=== PATIENT | female | born 1980 | race African-American/Black ===

== ENCOUNTER 2018-03-11 14:52 | Emergency (ER) | payer MEDICARE, MEDICAID ==
[~2018-03-11] VITALS: Ht 190.5 cm; Wt 168.2 kg
[~2018-03-11 14:52] MED LIST: AMOXICILLIN 8751 TAB PO; DIFLUCAN200 MG PO; HCTZ 25MG TAB25 MG PO; K-DUR 2020 MEQ PO; PREDNISONE20 MG PO; RT ADVAIR HFA 2312 G IH; SINGULAIR 110 MG/TAB PO; THEO-DUR 3300 MG/TAB PO; TOPAMAX50 MG PO; VENTOLIN0.09 MG IH; ZESTRIL 10MG10 MG PO; ZOLOFT 50MG50 MG PO
[2018-03-11] MEDS ORDERED: ZITHROMAX 250M250 MG PO (16:19)
[2018-03-11] MEDS ORDERED: BACTRIM DS 8001 TAB PO (16:20)
[2018-03-11 17:03] LABS: BASO % 0.2 % (0.0-2.0); EOS # 0.1 (0.0-0.7); EOS % 1.8 % (0-4.0); GRAN # 2.1 (1.4-6.5); GRAN % 48.6 % (42.2-75.2); LYMPH # 1.8 (1.2-3.4); LYMPH % 40.1 % (20.0-51.0); MEAN CELL VOLUME 83 fl (80.0-100.0); MEAN CORPUSCULAR HGB CONC 30 g/dl (33.0-37.0); MEAN PLATELET VOLUME 9.4 fl (7.4-10.4); MONO # 0.4 (0.1-0.6); MONO % 8.8 % (1.7-9.3); PLATELET COUNT 199 K/mm3 (130-400); REDCELL DISTRIBUTION WIDTH-CV 16.3 % (11.5-14.5)
[2018-03-11 17:05] LABS: HEMATOCRIT 30.6 % (37.0-47.0); HEMOGLOBIN 9.2 g/dl (12.5-16.0); MEAN CORPUSCULAR HEMOGLOBIN 25 pg (27.0-31.0)
[2018-03-11 17:11] VITALS: TEMP 97.3
[2018-03-11 17:19] LABS: ALANINE AMINOTRANSFERASE 23 U/L (9-52); ALBUMIN 3.4 gm/dL (3.5-5.0); ALKALINE PHOSPHATASE 57 U/L (50-136); ANION GAP 3 mmol/L (7-16); AST,SGOT 15 U/L (15-37); BILIRUBIN,TOTAL 0.2 mg/dL (0.0-1.0); BLOOD UREA NITROGEN 10 mg/dL (7-17); CALCIUM 8.7 mg/dL (8.4-10.2); CARBON DIOXIDE 28 mmol/L (22-30); CHLORIDE 111 mmol/L (98-107); CREATININE, serum 0.87 mg/dL (0.52-1.25); GLUCOSE 95 mg/dL (74-106); POTASSIUM 3.7 mmol/L (3.4-5.0); SODIUM 142 mmol/L (137-145); TOTAL PROTEIN 6.5 gm/dL (6.4-8.2)
[2018-03-11 17:23] LABS: C-REACTIVE PROTEIN < 0.5 mg/dL (0.0-0.9)
[2018-03-11 17:27] LABS: ARTERIAL BLD GAS O2 SATURATION 96.3 % (92-100); ARTERIAL BLD GAS TCO2 CT 25.8; ARTERIAL BLOOD GAS BASE EXCESS 0.5 (-2-2); ARTERIAL BLOOD GAS HCO3 24.7 meq/L (22-26); ARTERIAL BLOOD GAS PCO2 37.7 mmHg (35-45); ARTERIAL BLOOD GAS PO2 93.4 mmHg (80-100); ARTERIAL BLOOD GAS pH 7.43 (7.35-7.45)
[2018-03-11 17:28] LABS: TROPONIN-I < 0.012 ng/mL (0.000-0.034)
[2018-03-11] MEDS ORDERED: PREDNISONE20 MG PO (17:39)
[2018-03-11 18:39] VITALS: BP 130/80; PULSE 65
== END 2018-03-11 18:39 | disposition home or self-care (01) ==
LOC: COL.ER 14:52
PROVIDERS: Emergency Medicine
DX: J45.901 Unspecified asthma with (acute) exacerbation (principal); J06.9 Acute upper respiratory infection, unspecified; I10 Essential (primary) hypertension; F32.9 Major depressive disorder, single episode, unspecified; Z21 Asymptomatic human immunodeficiency virus [HIV] infection status
CPT/HCPCS: J2930

== ENCOUNTER 2018-08-09 22:28 | Emergency (ER) | payer MEDICARE, MEDICAID ==
[~2018-08-09] VITALS: Ht 193 cm; Wt 181.8 kg
[~2018-08-09 22:28] MED LIST changes: +BACTRIM DS 8001 TAB PO; +ZITHROMAX 250M250 MG PO
[2018-08-09 22:38] VITALS: BP 149/73; TEMP 98
[2018-08-09 23:19] LABS: BASO % 0.3 % (0.0-2.0); EOS # 0.1 (0.0-0.7); EOS % 1.8 % (0-4.0); GRAN # 4.7 (1.4-6.5); GRAN % 69.8 % (42.2-75.2); HEMOGLOBIN 10.5 g/dl (12.5-16.0); LYMPH # 1.4 (1.2-3.4); LYMPH % 20.5 % (20.0-51.0); MEAN CELL VOLUME 79 fl (80.0-100.0); MEAN CORPUSCULAR HEMOGLOBIN 23 pg (27.0-31.0); MEAN CORPUSCULAR HGB CONC 29 g/dl (33.0-37.0); MEAN PLATELET VOLUME 9.7 fl (7.4-10.4); MONO # 0.5 (0.1-0.6); MONO % 7.5 % (1.7-9.3); PLATELET COUNT 199 K/mm3 (130-400); RED BLOOD COUNT 4.57 M/mm3 (4.10-5.30); REDCELL DISTRIBUTION WIDTH-CV 16.5 % (11.5-14.5)
[2018-08-09 23:33] LABS: ALANINE AMINOTRANSFERASE 10 U/L (9-52); ALBUMIN 4.3 gm/dL (3.5-5.0); ALKALINE PHOSPHATASE 78 U/L (50-136); ANION GAP 7 mmol/L (7-16); AST,SGOT 22 U/L (15-37); BILIRUBIN,TOTAL 0.4 mg/dL (0.0-1.0); BLOOD UREA NITROGEN 12 mg/dL (7-17); CALCIUM 9.2 mg/dL (8.4-10.2); CARBON DIOXIDE 23 mmol/L (22-30); CHLORIDE 107 mmol/L (98-107); CREATININE, serum 1.06 mg/dL (0.52-1.25); GLUCOSE 121 mg/dL (74-106); LIPASE 30 U/L (23-300); POTASSIUM 4.1 mmol/L (3.4-5.0); SODIUM 136 mmol/L (137-145); TOTAL PROTEIN 7.8 gm/dL (6.4-8.2)
[2018-08-09 23:34] LABS: C-REACTIVE PROTEIN < 0.5 mg/dL (0.0-0.9)
[2018-08-09 23:42] LABS: TROPONIN-I < 0.012 ng/mL (0.000-0.035)
[2018-08-10 01:18] LABS: COLLECTION METHOD CLEAN CATCH
[2018-08-10 01:39] LABS: MUCOUS Present /lpf; PH 5 (5-8); SQUAMOUS EPITHELIAL 0-2 /hpf; URINE APPEARANCE Clear; URINE BACTERIA None Seen /hpf; URINE BILIRUBIN Negative (NEGATIVE); URINE BLOOD Negative (NEGATIVE); URINE COLOR Yellow; URINE GLUCOSE Negative (NEGATIVE); URINE KETONE Negative (NEGATIVE); URINE LEUKOCYTE ESTERASE Negative (NEGATIVE); URINE NITRATE Negative (NEGATIVE); URINE PROTEIN(semi-quant) Negative (NEGATIVE); URINE RBC 0-2 /hpf; URINE UROBILINOGEN Negative (NEGATIVE)
[2018-08-10 03:05] VITALS: PULSE 68
== END 2018-08-10 03:06 | disposition home or self-care (01) ==
LOC: COL.ER 22:28
PROVIDERS: Emergency Medicine
DX: K52.9 Noninfective gastroenteritis and colitis, unspecified (principal); E11.9 Type 2 diabetes mellitus without complications; I10 Essential (primary) hypertension; J45.909 Unspecified asthma, uncomplicated; F32.9 Major depressive disorder, single episode, unspecified; Z98.84 Bariatric surgery status; Z90.49 Acquired absence of other specified parts of digestive tract; Z79.51 Long term (current) use of inhaled steroids
CPT/HCPCS: J1170; J2405; J2550; J2765; J7030

== ENCOUNTER 2018-10-01 21:15 | Emergency (ER) | payer MEDICARE, MEDICAID ==
[~2018-10-01] VITALS: Ht 190.5 cm; Wt 181.8 kg
[2018-10-01 21:40] LABS: ALBUMIN 3.9 gm/dL (3.5-5.0); BILIRUBIN,TOTAL 0.3 mg/dL (0.0-1.0); CREATININE, serum 0.98 (0.52-1.25); POTASSIUM 3.4 mmol/L (3.4-5.0); TOTAL PROTEIN 7.4 gm/dL (6.4-8.2)
[2018-10-01 21:57] LABS: ARTERIAL BLD GAS O2 SATURATION 96.4 % (92-100); ARTERIAL BLD GAS TCO2 CT 24.3; ARTERIAL BLOOD GAS BASE EXCESS -0.8 (-2-2); ARTERIAL BLOOD GAS HCO3 23.2 meq/L (22-26); ARTERIAL BLOOD GAS PCO2 35.5 mmHg (35-45); ARTERIAL BLOOD GAS PO2 98.4 mmHg (80-100); ARTERIAL BLOOD GAS pH 7.43 (7.35-7.45)
[2018-10-01 22:07] LABS: BASO % 0.2 % (0.0-2.0); EOS % 0.2 % (0-4.0); GRAN # 2.2 (1.4-6.5); GRAN % 54.7 % (42.2-75.2); HEMATOCRIT 30.5 % (37.0-47.0); HEMOGLOBIN 9.1 g/dl (12.5-16.0); LYMPH # 1.3 (1.2-3.4); LYMPH % 32.4 % (20.0-51.0); MEAN CELL VOLUME 77 fl (80.0-100.0); MEAN CORPUSCULAR HEMOGLOBIN 23 pg (27.0-31.0); MEAN CORPUSCULAR HGB CONC 30 g/dl (33.0-37.0); MEAN PLATELET VOLUME 10.3 fl (7.4-10.4); MONO # 0.5 (0.1-0.6); PLATELET COUNT 212 K/mm3 (130-400); RED BLOOD COUNT 3.94 M/mm3 (4.10-5.30); REDCELL DISTRIBUTION WIDTH-CV 17.6 % (11.5-14.5)
[2018-10-01 23:39] LABS: COLLECTION METHOD CLEAN CATCH
[2018-10-01 23:48] LABS: PH 7 (5-8); SQUAMOUS EPITHELIAL 0-2 /hpf; URINE APPEARANCE Clear; URINE BACTERIA None Seen /hpf; URINE BILIRUBIN Negative (NEGATIVE); URINE BLOOD Negative (NEGATIVE); URINE COLOR Straw; URINE GLUCOSE Negative (NEGATIVE); URINE KETONE Negative (NEGATIVE); URINE LEUKOCYTE ESTERASE Negative (NEGATIVE); URINE NITRATE Negative (NEGATIVE); URINE PROTEIN(semi-quant) Negative (NEGATIVE); URINE RBC 0-2 /hpf; URINE UROBILINOGEN Negative (NEGATIVE)
[2018-10-01 23:59] LABS: TRICYCLIC ANTIDEPRESS URINE NEGATIVE
[2018-10-02] MEDS ORDERED: TRIUMEQ1 TAB PO (00:07)
[2018-10-02] MEDS ORDERED: DIFLUCAN150 MG PO (00:07)
[2018-10-02] MEDS ORDERED: FLONASE NASAL S16 GM NS (00:08)
[2018-10-02 03:58] VITALS: BP 155/86; PULSE 72; TEMP 98
== END 2018-10-02 03:40 | disposition short-term general hospital (02) ==
LOC: COL.ER 21:15
PROVIDERS: Family Medicine
DX: R41.82 Altered mental status, unspecified (principal); R51 Headache; R50.9 Fever, unspecified; R05 Cough; I10 Essential (primary) hypertension; Z21 Asymptomatic human immunodeficiency virus [HIV] infection status
CPT/HCPCS: J0133; J0290; J0696; J1100; J2270; J2310; J3370; J7030; J7040; J7050

== ENCOUNTER → 2018-10-25 | Outpatient (CLI) | payer MEDICARE, MEDICAID ==
[~2018-10-25] MED LIST changes: +DIFLUCAN150 MG PO; +FLONASE NASAL S16 GM NS; +TRIUMEQ1 TAB PO
== END ==
LOC: COL.PUL 07:25
DX: Z02.71 Encounter for disability determination (principal)

== ENCOUNTER 2019-05-15 02:09 | Emergency (ER) | payer MEDICARE, MEDICAID ==
[~2019-05-15] VITALS: Ht 190.5 cm; Wt 204.5 kg
[2019-05-15 02:45] VITALS: BP 132/70; PULSE 62; TEMP 98
[2019-05-15] MEDS ORDERED: AMOXICILLIN/CLA1 TA1 PO (02:45)
== END 2019-05-15 02:56 | disposition home or self-care (01) ==
LOC: COL.ER 02:09
DX: J06.9 Acute upper respiratory infection, unspecified (principal); J40 Bronchitis, not specified as acute or chronic; I10 Essential (primary) hypertension; Z79.51 Long term (current) use of inhaled steroids

== ENCOUNTER 2019-07-30 16:27 | Emergency (ER) | payer MEDICARE, MEDICAID ==
[~2019-07-30] VITALS: Ht 190.5 cm; Wt 195.5 kg
[~2019-07-30 16:27] MED LIST changes: +AMOXICILLIN/CLA1 TA1 PO
[2019-07-30 16:46] VITALS: TEMP 98
[2019-07-30] MEDS ORDERED: GLUCOPHAGE XR500 M1 PO (17:19)
[2019-07-30] MEDS ORDERED: PREDNISONE20 MG PO (19:10)
[2019-07-30 19:51] VITALS: BP 122/70; PULSE 76
== END 2019-07-30 19:55 | disposition home or self-care (01) ==
LOC: COL.ER 16:27
DX: J45.901 Unspecified asthma with (acute) exacerbation (principal); E11.9 Type 2 diabetes mellitus without complications; Z98.51 Tubal ligation status; Z90.89 Acquired absence of other organs; Z98.84 Bariatric surgery status; Z88.1 Allergy status to other antibiotic agents; Z79.84 Long term (current) use of oral hypoglycemic drugs; Z21 Asymptomatic human immunodeficiency virus [HIV] infection status
CPT/HCPCS: J1100

== ENCOUNTER 2019-11-01 15:51 | Outpatient (CLI) | payer MEDICARE, MEDICAID ==
[~2019-11-01] VITALS: Ht 190.5 cm; Wt 201.2 kg
[~2019-11-01 15:51] MED LIST changes: +GLUCOPHAGE XR500 M1 PO; +TOPAMAX 100MG100 M1 PO; -TOPAMAX50 MG PO; +ZOLOFT 100MG100 MG PO; -ZOLOFT 50MG50 MG PO
[2019-11-01] MEDS ORDERED: TRIUMEQ1 TAB PO (16:10)
[2019-11-01] MEDS ORDERED: BACTRIM DS 8001 TAB PO (16:14)
[2019-11-01] MEDS ORDERED: PRINIVIL5 MG PO (16:15)
[2019-11-01] MEDS ORDERED: GLUCOPHAGE XR500 M1 PO (16:16)
[2019-11-01] MEDS ORDERED: DIFLUCAN150 MG PO (16:16)
[2019-11-01] MEDS ORDERED: PRILOSEC 20MG20 MG PO (16:17)
[2019-11-01] MEDS ORDERED: EFFEXOR 3737.5 MG/TA PO (16:18)
[2019-11-01] MEDS ORDERED: DESYREL 50MG50 MG PO (16:19)
[2019-11-01] MEDS ORDERED: CLINORIL 2200 MG/TAB PO (16:19)
[2019-11-01] MEDS ORDERED: FLONASE NASAL S16 GM NS (16:20)
[2019-11-01 16:21] VITALS: BP 130/78; TEMP 98.3
[2019-11-01 19:10] VITALS: BP 136/77; PULSE 74; TEMP 98.1
== END 2019-11-01 19:19 | disposition home or self-care (01) ==
LOC: EUO 15:51
DX: D50.9 Iron deficiency anemia, unspecified (principal)
CPT/HCPCS: J2916; J7050

== ENCOUNTER 2020-01-05 15:49 | Emergency (ER) | payer MEDICARE, MEDICAID ==
[~2020-01-05] VITALS: Ht 190.5 cm; Wt 190.9 kg
[~2020-01-05 15:49] MED LIST changes: +CLINORIL 2200 MG/TAB PO; +DESYREL 50MG50 MG PO; +EFFEXOR 3737.5 MG/TA PO; +PRILOSEC 20MG20 MG PO; +PRINIVIL5 MG PO
[2020-01-05 16:13] VITALS: TEMP 97.6
[2020-01-05 16:44] LABS: BASO % 0.8 % (0.0-2.0); EOS # 0.1 (0.0-0.7); EOS % 2.2 % (0-4.0); GRAN # 1.5 (1.4-6.5); GRAN % 39.7 % (42.2-75.2); HEMATOCRIT 39.2 % (37.0-47.0); HEMOGLOBIN 11.7 g/dl (12.5-16.0); LYMPH # 1.9 (1.2-3.4); MEAN CELL VOLUME 80 fl (80.0-100.0); MEAN CORPUSCULAR HEMOGLOBIN 24 pg (27.0-31.0); MEAN CORPUSCULAR HGB CONC 30 g/dl (33.0-37.0); MONO # 0.3 (0.1-0.6); PLATELET COUNT 242 K/mm3 (130-400); RED BLOOD COUNT 4.88 M/mm3 (4.10-5.30); REDCELL DISTRIBUTION WIDTH-CV 20.3 % (11.5-14.5)
[2020-01-05 16:56] LABS: ALANINE AMINOTRANSFERASE 11 U/L (4-34); ALBUMIN 4.5 gm/dL (3.5-5.0); ALKALINE PHOSPHATASE 56 U/L (50-136); ANION GAP 9 mmol/L (7-16); AST,SGOT 25 U/L (15-37); BILIRUBIN,TOTAL 0.6 mg/dL (0.0-1.0); BLOOD UREA NITROGEN 11 mg/dL (7-17); CALCIUM 9.3 mg/dL (8.4-10.2); CARBON DIOXIDE 21 mmol/L (22-30); CHLORIDE 107 mmol/L (98-107); CREATININE, serum 0.98 (0.52-1.25); GLUCOSE 109 mg/dL (74-106); SODIUM 137 mmol/L (137-145); TOTAL PROTEIN 8.8 gm/dL (6.4-8.2)
[2020-01-05 17:01] LABS: C-REACTIVE PROTEIN < 0.5 mg/dL (0.0-0.9)
[2020-01-05 17:14] LABS: TROPONIN-I < 0.012 ng/mL (0.000-0.035)
[2020-01-05 17:38] LABS: STREP SCREEN NEGATIVE
[2020-01-05] MEDS ORDERED: PREDNISONE20 MG PO (17:46)
[2020-01-05 18:06] VITALS: BP 101/55; PULSE 73
== END 2020-01-05 18:06 | disposition home or self-care (01) ==
LOC: COL.ER 15:49
PROVIDERS: Emergency Medicine
DX: R05 Cough (principal); R07.89 Other chest pain; R42 Dizziness and giddiness; F32.9 Major depressive disorder, single episode, unspecified; K21.9 Gastro-esophageal reflux disease without esophagitis; J45.909 Unspecified asthma, uncomplicated; I10 Essential (primary) hypertension; Z90.49 Acquired absence of other specified parts of digestive tract; Z20.828 Contact with and (suspected) exposure to other viral communicable diseases; Z21 Asymptomatic human immunodeficiency virus [HIV] infection status; Z79.51 Long term (current) use of inhaled steroids; Z79.84 Long term (current) use of oral hypoglycemic drugs
CPT/HCPCS: J7030

== ENCOUNTER 2020-01-09 16:00 | Outpatient (RCR) | payer MEDICARE, MEDICAID ==
[2019-12-15 14:35] VITALS: BP 155/80; PULSE 61; TEMP 97.1
[2019-12-23 07:46] VITALS: BP 138/87; PULSE 70; TEMP 98.5
[~2020-01-09] VITALS: Ht 190.5 cm; Wt 192.3 kg
[2020-01-09 16:21] VITALS: BP 117/72; PULSE 86; TEMP 98.9
== END 2020-01-09 18:22 | disposition home or self-care (01) ==
LOC: EUO 16:00
DX: D50.9 Iron deficiency anemia, unspecified (principal); Z79.899 Other long term (current) drug therapy
CPT/HCPCS: J2916; J7050

== ENCOUNTER 2020-01-26 22:25 | Emergency (ER) | payer MEDICARE, MEDICAID ==
[~2020-01-26] VITALS: Ht 190.5 cm; Wt 190.9 kg
[2020-01-26 22:27] VITALS: TEMP 98.9
[2020-01-26 22:53] LABS: BASO % 0.4 % (0.0-2.0); EOS # 0.1 (0.0-0.7); EOS % 1.8 % (0-4.0); GRAN # 1.4 (1.4-6.5); GRAN % 50.7 % (42.2-75.2); HEMATOCRIT 38.5 % (37.0-47.0); HEMOGLOBIN 11.7 g/dl (12.5-16.0); LYMPH % 37.1 % (20.0-51.0); MEAN CELL VOLUME 81 fl (80.0-100.0); MEAN CORPUSCULAR HEMOGLOBIN 25 pg (27.0-31.0); MEAN CORPUSCULAR HGB CONC 30 g/dl (33.0-37.0); MEAN PLATELET VOLUME 9.5 fl (7.4-10.4); MONO # 0.3 (0.1-0.6); MONO % 9.6 % (1.7-9.3); PLATELET COUNT 175 K/mm3 (130-400); RED BLOOD COUNT 4.73 M/mm3 (4.10-5.30); REDCELL DISTRIBUTION WIDTH-CV 19.2 % (11.5-14.5)
[2020-01-26 23:06] LABS: ALANINE AMINOTRANSFERASE 12 U/L (4-34); ALBUMIN 4.1 gm/dL (3.5-5.0); ALKALINE PHOSPHATASE 62 U/L (50-136); ANION GAP 9 mmol/L (7-16); AST,SGOT 20 U/L (15-37); BILIRUBIN,TOTAL 0.2 mg/dL (0.0-1.0); BLOOD UREA NITROGEN 9 mg/dL (7-17); CALCIUM 9.2 mg/dL (8.4-10.2); CARBON DIOXIDE 22 mmol/L (22-30); CHLORIDE 108 mmol/L (98-107); CREATININE, serum 0.74 (0.52-1.25); GLUCOSE 116 mg/dL (74-106); POTASSIUM 3.4 mmol/L (3.4-5.0); SODIUM 139 mmol/L (137-145); TOTAL PROTEIN 7.8 gm/dL (6.4-8.2)
[2020-01-26 23:10] LABS: C-REACTIVE PROTEIN < 0.5 mg/dL (0.0-0.9)
[2020-01-27 01:10] VITALS: BP 150/86; PULSE 81
== END 2020-01-27 01:10 | disposition home or self-care (01) ==
LOC: COL.ER 22:25
PROVIDERS: Emergency Medicine
DX: R51 Headache (principal); I10 Essential (primary) hypertension; F32.9 Major depressive disorder, single episode, unspecified; Z86.69 Personal history of other diseases of the nervous system and sense organs; Z79.52 Long term (current) use of systemic steroids; Z79.51 Long term (current) use of inhaled steroids; Z79.84 Long term (current) use of oral hypoglycemic drugs
CPT/HCPCS: J1170; J1790; J2405; J7030

== ENCOUNTER 2020-04-18 18:05 | Emergency (ER) | payer MEDICARE, MEDICAID ==
[~2020-04-18] VITALS: Ht 190.5 cm; Wt 186.4 kg
[2020-04-18 18:12] VITALS: TEMP 97.5
[2020-04-18 18:34] VITALS: BP 129/78; PULSE 82
== END 2020-04-18 18:34 | disposition home or self-care (01) ==
LOC: COL.ER 18:05
DX: Z20.828 Contact with and (suspected) exposure to other viral communicable diseases (principal); J45.909 Unspecified asthma, uncomplicated; Z88.1 Allergy status to other antibiotic agents; Z79.52 Long term (current) use of systemic steroids; Z79.84 Long term (current) use of oral hypoglycemic drugs

== ENCOUNTER 2020-09-18 22:28 | Emergency (ER) | payer MEDICARE, MEDICAID ==
[~2020-09-18] VITALS: Ht 190.5 cm; Wt 190.9 kg
[2020-09-18 22:43] VITALS: TEMP 99.5
[2020-09-18 23:19] LABS: BASO % 0.3 % (0.0-2.0); EOS % 0.7 % (0-4.0); GRAN # 3.6 (1.4-6.5); GRAN % 60.9 % (42.2-75.2); HEMOGLOBIN 10.9 g/dl (12.5-16.0); LYMPH # 1.8 (1.2-3.4); LYMPH % 30.3 % (20.0-51.0); MEAN CELL VOLUME 84 fl (80.0-100.0); MEAN CORPUSCULAR HEMOGLOBIN 26 pg (27.0-31.0); MEAN CORPUSCULAR HGB CONC 31 g/dl (33.0-37.0); MEAN PLATELET VOLUME 10.7 fl (7.4-10.4); MONO # 0.5 (0.1-0.6); MONO % 7.6 % (1.7-9.3); PLATELET COUNT 172 K/mm3 (130-400); RED BLOOD COUNT 4.19 M/mm3 (4.10-5.30); REDCELL DISTRIBUTION WIDTH-CV 14.1 % (11.5-14.5)
[2020-09-18 23:22] LABS: ALANINE AMINOTRANSFERASE 11 U/L (4-34); ALBUMIN 3.8 gm/dL (3.5-5.0); ALKALINE PHOSPHATASE 70 U/L (50-136); ANION GAP 5 mmol/L (7-16); AST,SGOT 23 U/L (15-37); BILIRUBIN,TOTAL 0.2 mg/dL (0.0-1.0); BLOOD UREA NITROGEN 10 mg/dL (7-17); CALCIUM 8.9 mg/dL (8.4-10.2); CARBON DIOXIDE 22 mmol/L (22-30); CHLORIDE 107 mmol/L (98-107); CREATININE, serum 0.73 (0.52-1.25); GLUCOSE 106 mg/dL (74-106); SODIUM 134 mmol/L (137-145); TOTAL PROTEIN 8.3 gm/dL (6.4-8.2)
[2020-09-18 23:24] LABS: HEMATOCRIT 35.3 % (37.0-47.0)
[2020-09-18 23:25] LABS: MONOSCREEN NEGATIVE
[2020-09-18 23:26] LABS: STREP SCREEN NEGATIVE
[2020-09-18 23:41] LABS: TROPONIN-I < 0.012 ng/mL (0.000-0.035)
[2020-09-19 01:15] VITALS: BP 139/77; PULSE 88
== END 2020-09-19 01:18 | disposition home or self-care (01) ==
LOC: COL.ER 22:28
PROVIDERS: Nurse Practitioner
DX: B34.9 Viral infection, unspecified (principal); Z20.822 Contact with and (suspected) exposure to COVID-19; Z88.1 Allergy status to other antibiotic agents; Z91.040 Latex allergy status; Z79.52 Long term (current) use of systemic steroids; Z79.84 Long term (current) use of oral hypoglycemic drugs
CPT/HCPCS: J3010; J7030

== ENCOUNTER 2021-05-03 11:03 | Outpatient (RCR) | payer MEDICARE, MEDICAID ==
[~2021-05-03] VITALS: Ht 190.5 cm; Wt 184.3 kg
[~2021-05-03 11:03] MED LIST changes: +PRINIVIL10 MG PO; -PRINIVIL5 MG PO
[2021-05-03 11:56] VITALS: BP 122/65; PULSE 71; TEMP 98.5
[2021-05-03] MEDS ORDERED: BIKTARVY 50-201 EACH PO (12:16)
[2021-05-03] MEDS ORDERED: VENTOLIN0.09 MG IH (12:17)
== END 2021-05-03 12:30 | disposition home or self-care (01) ==
LOC: EUO 11:03
DX: D50.9 Iron deficiency anemia, unspecified (principal)
CPT/HCPCS: J1756

== ENCOUNTER 2021-09-11 23:21 | Emergency (ER) | payer MEDICARE, MEDICAID ==
[~2021-09-11] VITALS: Ht 190.5 cm; Wt 181.8 kg
[~2021-09-11 23:21] MED LIST changes: +BIKTARVY 50-201 EACH PO
[2021-09-12] VITALS: BP 133/91; PULSE 75; TEMP 97.8
== END 2021-09-12 01:01 | disposition home or self-care (01) ==
LOC: COL.ER 23:21
DX: S62.613A Displaced fracture of proximal phalanx of left middle finger, initial encounter for closed fracture (principal); S60.312A Abrasion of left thumb, initial encounter; Z91.040 Latex allergy status; W01.0XXA Fall on same level from slipping, tripping and stumbling without subsequent striking against object, initial encounter

== ENCOUNTER 2021-10-15 16:56 | Emergency (ER) | payer MEDICARE, MEDICAID ==
[~2021-10-15] VITALS: Ht 190.5 cm; Wt 190.9 kg
[2021-10-15 17:02] VITALS: TEMP 97.6
[2021-10-15 17:19] LABS: BASO % 0.9 % (0.0-2.0); EOS # 0.2 K/mm3 (0.0-0.7); EOS % 3.5 % (0.0-4.0); GRAN # 1.7 K/mm3 (1.4-6.5); GRAN % 39.2 % (42.2-75.2); HEMATOCRIT 38.9 % (37.0-47.0); LYMPH # 2.1 K/mm3 (1.2-3.4); LYMPH % 47.2 % (20.0-51.0); MEAN CELL VOLUME 84 fl (80.0-100.0); MEAN CORPUSCULAR HEMOGLOBIN 26 pg (27-31); MEAN CORPUSCULAR HGB CONC 31 g/dl (33.0-37.0); MEAN PLATELET VOLUME 9.7 fl (7.4-10.4); MONO # 0.4 K/mm3 (0.1-0.6); PLATELET COUNT 234 K/mm3 (130-400); RED BLOOD COUNT 4.64 M/mm3 (4.10-5.30); REDCELL DISTRIBUTION WIDTH-CV 14.3 % (11.5-14.5)
[2021-10-15 17:24] LABS: INR 1.1 (0.8-3.0); PROTHROMBIN TIME 12.6 SECONDS (9.7-12.8)
[2021-10-15 17:33] LABS: ALANINE AMINOTRANSFERASE 12 U/L (0-55); ALBUMIN 3.6 gm/dL (3.5-5.0); ALKALINE PHOSPHATASE 62 U/L (40-150); ANION GAP 12 mmol/L (7-16); AST,SGOT 14 U/L (5-34); BILIRUBIN,TOTAL 0.3 mg/dL (0.2-1.2); BLOOD UREA NITROGEN 15 mg/dL (7-19); CALCIUM 8.6 mg/dL (8.4-10.2); CARBON DIOXIDE 19 mmol/L (22-29); CHLORIDE 109 mmol/L (98-107); CREATININE, serum 1.01 mg/dL (0.57-1.11); GLUCOSE 92 mg/dL (70-99); LIPASE 24 U/L (8-78); POTASSIUM 3.9 mmol/L (3.5-4.5); SODIUM 140 mmol/L (136-145)
[2021-10-15 17:38] LABS: D-DIMER < 200.00 ng/mLDDu (200-230)
[2021-10-15 17:39] LABS: TROPONIN-I < 0.010 ng/mL (0.00-0.033)
[2021-10-15] MEDS ORDERED: NAPROSYN500 MG PO (17:56)
[2021-10-15 18:39] VITALS: BP 138/95; PULSE 59
== END 2021-10-15 18:42 | disposition home or self-care (01) ==
LOC: COL.ER 16:56
PROVIDERS: Nurse Practitioner Primary Care
DX: M94.0 Chondrocostal junction syndrome [Tietze] (principal); Z91.040 Latex allergy status
CPT/HCPCS: J1200; J1885; J7030

== ENCOUNTER 2022-02-10 09:00 | Outpatient (RCR) | payer MEDICARE, MEDICAID ==
[2022-01-30 11:34] VITALS: BP 124/81; BP 141/91; PULSE 63; PULSE 93; TEMP 98; TEMP 98.5
[2022-02-03 11:30] VITALS: BP 131/78; PULSE 89; TEMP 98
[2022-02-05 09:21] VITALS: BP 146/74; BP 94/59; PULSE 74; PULSE 84; TEMP 97.9; TEMP 98.4
[2022-02-07 09:18] VITALS: BP 143/75; PULSE 79; TEMP 98.4
[~2022-02-10] VITALS: Ht 190.5 cm; Wt 191.6 kg
[~2022-02-10 09:00] MED LIST changes: +NAPROSYN500 MG PO
[2022-02-10 09:28] VITALS: BP 138/74; PULSE 81; TEMP 98.2
--- NOTE | 2022-02-10 10:16 | NUR ---
Pt tolerated infusion without issue. IV site wrapped with coban. Pt exits dept with steady gait.
== END 2022-02-10 10:18 | disposition home or self-care (01) ==
LOC: EUO 09:00
DX: D50.9 Iron deficiency anemia, unspecified (principal)
CPT/HCPCS: J1756

== ENCOUNTER 2022-09-19 12:12 | Emergency (ER) | payer MEDICARE, MEDICAID ==
[~2022-09-19] VITALS: Ht 190.5 cm; Wt 190.9 kg
[~2022-09-19 12:12] MED LIST changes: +ZITHROMAX Z PA250 MG PO
[2022-09-19 12:20] VITALS: BP 169/90; TEMP 99
[2022-09-19 12:53] LABS: BASO % 0.5 % (0.0-2.0); EOS % 0.5 % (0.0-4.0); GRAN # 2.5 K/mm3 (1.4-6.5); GRAN % 65.8 % (42.2-75.2); HEMATOCRIT 37.8 % (37.0-47.0); HEMOGLOBIN 12.2 g/dl (12.5-16.0); LYMPH # 0.9 K/mm3 (1.2-3.4); LYMPH % 23.6 % (20.0-51.0); MEAN CELL VOLUME 87 fl (80.0-100.0); MEAN CORPUSCULAR HEMOGLOBIN 28 pg (27-31); MEAN CORPUSCULAR HGB CONC 32 g/dl (33.0-37.0); MEAN PLATELET VOLUME 9.2 fl (7.4-10.4); MONO # 0.3 K/mm3 (0.1-0.6); MONO % 9.1 % (1.7-9.3); PLATELET COUNT 185 K/mm3 (130-400); RED BLOOD COUNT 4.37 M/mm3 (4.10-5.30); REDCELL DISTRIBUTION WIDTH-CV 13.3 % (11.5-14.5)
[2022-09-19 13:18] LABS: ALBUMIN 3.7 gm/dL (3.5-5.0); BILIRUBIN,TOTAL 0.3 mg/dL (0.2-1.2); CALCIUM 9.3 mg/dL (8.4-10.2); CREATININE, serum 0.79 mg/dL (0.57-1.11); POTASSIUM 3.5 mmol/L (3.5-4.5); TOTAL PROTEIN 7.4 gm/dL (6.2-8.1)
[2022-09-19] MEDS ORDERED: PREDNISONE50 MG PO (14:11)
[2022-09-19] MEDS ORDERED: VENTOLIN0.09 MG IH (14:11)
[2022-09-19 14:22] VITALS: PULSE 90
== END 2022-09-19 14:23 | disposition home or self-care (01) ==
LOC: COL.ER 12:12
PROVIDERS: Emergency Medicine
DX: J45.901 Unspecified asthma with (acute) exacerbation (principal); Z91.040 Latex allergy status; Z98.890 Other specified postprocedural states; Z79.51 Long term (current) use of inhaled steroids
CPT/HCPCS: J7512

== ENCOUNTER 2023-03-10 00:55 | Emergency (ER) | payer MEDICARE, MEDICAID ==
[~2023-03-10] VITALS: Ht 190.5 cm; Wt 197.7 kg
[~2023-03-10 00:55] MED LIST changes: +DOXYCYCLINE 10100 MG PO; +PREDNISONE50 MG PO
[2023-03-10 01:01] VITALS: TEMP 98.3
[2023-03-10 01:38] LABS: BASO % 0.7 % (0.0-2.0); EOS # 0.3 K/mm3 (0.0-0.7); EOS % 6.5 % (0.0-4.0); GRAN # 1.7 K/mm3 (1.4-6.5); GRAN % 40.2 % (42.2-75.2); HEMOGLOBIN 11.7 g/dl (12.5-16.0); LYMPH # 1.8 K/mm3 (1.2-3.4); LYMPH % 42.3 % (20.0-51.0); MEAN CELL VOLUME 87 fl (80.0-100.0); MEAN CORPUSCULAR HEMOGLOBIN 28 pg (27-31); MEAN CORPUSCULAR HGB CONC 32 g/dl (33.0-37.0); MEAN PLATELET VOLUME 9.2 fl (7.4-10.4); MONO # 0.4 K/mm3 (0.1-0.6); MONO % 10.1 % (1.7-9.3); PLATELET COUNT 186 K/mm3 (130-400); RED BLOOD COUNT 4.22 M/mm3 (4.10-5.30); REDCELL DISTRIBUTION WIDTH-CV 13.4 % (11.5-14.5)
[2023-03-10 01:40] LABS: HEMATOCRIT 36.9 % (37.0-47.0)
[2023-03-10 01:55] LABS: ALANINE AMINOTRANSFERASE 13 U/L (0-55); ALBUMIN 3.7 gm/dL (3.5-5.0); ALKALINE PHOSPHATASE 59 U/L (40-150); ANION GAP 11 mmol/L (7-16); AST,SGOT 15 U/L (5-34); BILIRUBIN,TOTAL 0.3 mg/dL (0.2-1.2); BLOOD UREA NITROGEN 10 mg/dL (7-19); CALCIUM 8.9 mg/dL (8.4-10.2); CARBON DIOXIDE 22 mmol/L (22-29); CHLORIDE 109 mmol/L (98-107); CREATININE, serum 0.77 mg/dL (0.57-1.11); GLUCOSE 105 mg/dL (70-99); POTASSIUM 3.6 mmol/L (3.5-4.5); SODIUM 142 mmol/L (136-145); TOTAL PROTEIN 7.2 gm/dL (6.2-8.1)
[2023-03-10 02:02] LABS: TROPONIN-I < 0.010 ng/mL (0.00-0.033)
[2023-03-10] MEDS ORDERED: PROAIR HFA0.09 MG/AC IH (02:40)
[2023-03-10 02:59] VITALS: BP 137/95; PULSE 65
== END 2023-03-10 02:59 | disposition home or self-care (01) ==
LOC: COL.ER 00:55
PROVIDERS: Emergency Medicine
DX: J45.909 Unspecified asthma, uncomplicated (principal); Z91.040 Latex allergy status; Z20.822 Contact with and (suspected) exposure to COVID-19; Z28.310 Unvaccinated for COVID-19
CPT/HCPCS: J8540

== ENCOUNTER 2023-06-14 15:08 | Emergency (ER) | payer MEDICARE, MEDICAID ==
[~2023-06-14] VITALS: Ht 190.5 cm; Wt 195.5 kg
[~2023-06-14 15:08] MED LIST changes: +PROAIR HFA0.09 MG/AC IH
[2023-06-14 15:11] VITALS: TEMP 98.6
[2023-06-14 15:41] LABS: BASO % 1.1 % (0.0-2.0); EOS # 0.2 K/mm3 (0.0-0.7); EOS % 6.3 % (0.0-4.0); GRAN # 1.4 K/mm3 (1.4-6.5); GRAN % 38.9 % (42.2-75.2); HEMATOCRIT 41.6 % (37.0-47.0); HEMOGLOBIN 12.9 g/dl (12.5-16.0); LYMPH # 1.7 K/mm3 (1.2-3.4); LYMPH % 47.4 % (20.0-51.0); MEAN CELL VOLUME 88 fl (80.0-100.0); MEAN CORPUSCULAR HEMOGLOBIN 27 pg (27-31); MEAN CORPUSCULAR HGB CONC 31 g/dl (33.0-37.0); MEAN PLATELET VOLUME 9.7 fl (7.4-10.4); MONO # 0.2 K/mm3 (0.1-0.6); MONO % 6.3 % (1.7-9.3); PLATELET COUNT 196 K/mm3 (130-400); RED BLOOD COUNT 4.75 M/mm3 (4.10-5.30); REDCELL DISTRIBUTION WIDTH-CV 13.5 % (11.5-14.5)
[2023-06-14] MEDS ORDERED: Ketorolac 15 MG/ML VIAL IV ONE (15:45)
[2023-06-14 15:56] LABS: ALANINE AMINOTRANSFERASE 9 U/L (0-55); ALBUMIN 3.9 gm/dL (3.5-5.0); ALKALINE PHOSPHATASE 55 U/L (40-150); ANION GAP 10 mmol/L (7-16); AST,SGOT 15 U/L (5-34); BILIRUBIN,TOTAL 0.3 mg/dL (0.2-1.2); BLOOD UREA NITROGEN 12 mg/dL (7-19); CALCIUM 9.6 mg/dL (8.4-10.2); CARBON DIOXIDE 22 mmol/L (22-29); CHLORIDE 107 mmol/L (98-107); CREATININE, serum 0.87 mg/dL (0.57-1.11); GLUCOSE 146 mg/dL (70-99); LIPASE 19 U/L (8-78); POTASSIUM 3.8 mmol/L (3.5-4.5); SODIUM 139 mmol/L (136-145); TOTAL PROTEIN 7.8 gm/dL (6.2-8.1)
[2023-06-14 16:03] LABS: TROPONIN-I < 0.010 ng/mL (0.00-0.033)
[2023-06-14] MEDS ORDERED: Home Cyclobenzaprine 10 MG #2 TABS/PACK PO ONE (17:00)
[2023-06-14] MEDS ORDERED: FLEXERIL 1010 MG/TAB PO (17:03)
[2023-06-14 17:07] VITALS: BP 117/62; PULSE 71
== END 2023-06-14 17:15 | disposition home or self-care (01) ==
LOC: COL.ER 15:08
PROVIDERS: Emergency Medicine
DX: R07.89 Other chest pain (principal); D72.819 Decreased white blood cell count, unspecified; M54.2 Cervicalgia; M25.511 Pain in right shoulder; E66.9 Obesity, unspecified; B20 Human immunodeficiency virus [HIV] disease; Z79.899 Other long term (current) drug therapy; Z98.84 Bariatric surgery status; Z91.040 Latex allergy status
CPT/HCPCS: J1885